=== PATIENT | male | born 2000 | race Caucasian/White ===

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

== ENCOUNTER 2021-01-24 22:17 | Emergency (ER) | payer BC ==
[~2021-01-24] VITALS: Ht 175.3 cm; Wt 61.4 kg
[2021-01-24 23:48] VITALS: BP 124/75; PULSE 73; TEMP 98.4
== END 2021-01-24 23:48 | disposition home or self-care (01) ==
LOC: COL.ER 22:17
DX: S16.1XXA Strain of muscle, fascia and tendon at neck level, initial encounter (principal); W19.XXXA Unspecified fall, initial encounter; Y93.B9 Activity, other involving muscle strengthening exercises